=== PATIENT | male | born 1965 | race Caucasian/White ===

== ENCOUNTER 2018-09-03 11:20 | Emergency (ER) | payer OTHER, SELFPAY ==
[2018-09-03 11:32] VITALS: BP 174/98; PULSE 74; TEMP 98.1; BMI 45.3
--- NOTE | 2018-09-03 11:54 | ED PDOC ---
HPI: Back Time Seen by Provider: 09/03/18 11:35 Chief Complaint (Nursing): Back Pain Chief Complaint (Provider): back pain History Per: Patient Additional Complaint(s): 53-year-old male presents to emergency room with intermittent lower back pain ongoing for 1 week. Patient denies any fall or trauma. 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 He has not taken anything for pain. Patient denies bowel or bladder dysfunction. PMD: none Past Medical History Reviewed: Historical Data, Nursing Documentation, Vital Signs Vital Signs: Last Vital Signs Temp 98.1 F 09/03/18 11:31 Pulse 74 09/03/18 11:31 Resp BP 174/98 H 09/03/18 11:31 Pulse Ox 97 09/03/18 11:31 - Medical History PMH: No Chronic Diseases - Surgical History Other surgeries: left foot surgery - Family History Family History: States: No Known Family Hx - Living Arrangements Living Arrangements: With Family - Social History Current smoker - smoking cessation education provided: No Alcohol: None Drugs: Denies - Home Medications Home Medications: Ambulatory Orders Medication Instructions Recorded Cyclobenzaprine [Cyclobenzaprine 10 mg PO TID PRN #20 tab 09/03/18 HCl] Naproxen [Naprosyn] 500 mg PO BID #20 tab 09/03/18 - Allergies Allergies/Adverse Reactions: Allergies Allergy/AdvReac Type Severity Reaction Status Date / Time No Known Allergies Allergy Verified 09/03/18 11:47 Review of Systems ROS Statement: Except As Marked, All Systems Reviewed And Found Negative Constitutional: Negative for: Fever Genitourinary Male: Negative for: Dysuria, Frequency, Incontinence, Hematuria Musculoskeletal: Positive for: Back Pain (lower) Physical Exam - Reviewed Nursing Documentation Reviewed: Yes Vital Signs Reviewed: Yes - Physical Exam Appears: Positive for: Well, Non-toxic, No Acute Distress Skin: Positive for: Normal Color. Negative for: Rash Eye Exam: Positive for: Normal appearance Gastrointestinal/Abdominal: Positive for: Soft. Negative for: Tenderness Back: Positive for: Vertebral Tenderness (across lower lumbar region) Extremity: Positive for: Normal ROM Neurologic/Psych: Positive for: Alert, Oriented, Gait (steady) - Laboratory Results Urine dip results: Negative for: Leukocyte Esterase, Blood, Nitrate, Ketones, Glucose, Bilirubin, Protein - ECG O2 Sat by Pulse Oximetry: 97 Pulse Ox Interpretation: Normal - Other Rad LS Spine x-ray X-Ray: Interpreted by Me, Viewed By Me X-Ray Interpretation: degenerative changes, no fx or dis Medical Decision Making Medical Decision Makin53 y/o male with back pain Plan: PO motrin PO flexeril X-ray LS Spine Urine dip Patient reports improvement to pain after meds were given. He is aware of diagnostic testing results, all questions answered. Prescription for Naprosyn and Flexeril provided along with instructions to follow up with clinic. Disposition - Clinical Impression Clinical Impression: Back strain - Patient ED Disposition Is Patient to be Admitted: No Counseled Patient/Family Regarding: Studies Performed, Diagnosis, Need For Followup, Rx Given - Disposition Referrals: [facility] [place] [Outside] Disposition: Routine/Home Disposition Time: 14:02 Condition: STABLE Additional Instructions: Take prescription meds as directed as needed for pain. Follow-up with clinic for further evaluation. Prescriptions: Cyclobenzaprine [Cyclobenzaprine HCl] 10 mg PO TID PRN #20 tab PRN Reason: Muscle Spasm Naproxen [Naprosyn] 500 mg PO BID #20 tab Instructions: Back Exercises, Muscle Strain (DC), Low Back Pain in Adults Forms: [employer] (Y[place]i) Print Language: CHINESE
--- NOTE | 2018-09-03 13:08 | RAD ---
Date of service: 09/03/2018 PROCEDURE: Radiographs of the Lumbar Spine. HISTORY: Back pain COMPARISON: No prior. FINDINGS: BONES: There is normal alignment of the lumbar vertebral bodies. There is normal lumbar lordosis. There is no acute fracture, spondylolysis or spondylolisthesis. Bone mineralization is normal. DISC SPACES: There is multilevel degenerative disc disease with anterior osteophytes, reduced disc heights and multilevel facet arthropathy, worse at L5-S1. OTHER FINDINGS: There are no pathologic soft tissue calcifications. Both sacroiliac joints are normal. IMPRESSION: No acute fracture, spondylolysis or spondylolisthesis. Multilevel degenerative disc disease, worse at L5-S1.
[2018-09-03 14:29] VITALS: O2SAT 97
== END 2018-09-03 14:28 | disposition home or self-care (01) ==
LOC: H.ER 11:20
DX: S39.012A Strain of muscle, fascia and tendon of lower back, initial encounter (principal); X58.XXXA Exposure to other specified factors, initial encounter; Y92.89 Other specified places as the place of occurrence of the external cause; M51.37 Other intervertebral disc degeneration, lumbosacral region